=== PATIENT | female | born 1980 | race Caucasian/White ===

== ENCOUNTER 2017-12-29 12:09 | Outpatient (CLI) ==
[2016-07-06 17:23] VITALS: BMI 21.6
--- NOTE | 2017-12-29 13:43 | DI ---
EXAM: Three views of the right ankle. History: Right ankle trauma. Findings: No acute fracture or dislocation. Tiny plantar spur. Joint spaces are preserved. No abn ormal calcifications or radiopaque foreign bodies. Mild lateral soft tissue swelling. Impression: No acute osseous abnormality
== END 2017-12-29 12:10 | disposition home or self-care (01) ==
LOC: RAD 12:09
PROVIDERS: ATTEND Family Medicine
DX: S99.911A Unspecified injury of right ankle, initial encounter (principal)

== ENCOUNTER 2018-03-28 15:57 | Outpatient (CLI) ==
[2016-07-06 17:23] VITALS: BMI 21.6
== END 2018-03-28 15:58 | disposition home or self-care (01) ==
LOC: RHC-LAB 15:57
PROVIDERS: ATTEND Emergency Medicine
DX: L20.89 Other atopic dermatitis (principal)
CPT/HCPCS: 36415; 80053; 85025

== ENCOUNTER 2019-03-20 10:32 | Emergency (ER) | payer OTHER ==
[2019-03-20 10:39] VITALS: BP 131/86; TEMP 99.1; BMI 22.7
--- NOTE | 2019-03-20 12:05 | ED.PDOC ---
General ED Provider: Dr. CHARAN MILLER Chief Complaint: Hand Pain/Injury Stated Complaint: BLUNT FORCE TRAUMA DORSAL LEFT HAND AND WRIST Time Seen by Physician: 10:32 Mode of Arrival: Walk-In Information Source: Patient Exam Limitations: No limitations Primary Care Provider: EUSEBIA CARDOZO Nursing and Triage Documentation Reviewed and Agree: Yes Does patient meet sepsis criteria?: No System Inflammatory Response Syndrome: Not Applicable Sepsis Protocol: For patient's 13 years and over: Temp is 96.8 and below OR 101 and greater Pulse >90 BPM Resp >20/minute Acutely Altered Mental Status Are patient's symptoms suggestive of a new infection, such as: -Pneumonia -Skin, Soft Tissue -Endocarditis -UTI -Bone, Joint Infection -Implantable Device -Acute Abdominal Infection -Wound Infection -Meningitis -Blood Stream Catheter Infection -Unknown Musculoskeletal Complaint Exam - Hand/Wrist Complaint/Exam Location of Pain: Reports: Left, Hand, Wrist Mechanism of Injury: Reports: Trauma Onset/Duration: TODAY Symptoms Are: Still present Onset of Pain: Reports: Immediate Initial Severity: Mild Current Severity: Mild Location: Reports: Discrete Character: Reports: Aching Alleviating: Reports: Rest Aggravating: Reports: Movement Associated Signs and Symptoms: Reports: Swelling. Denies: Redness, Bruising, Fever, Weakness, Numbness, Tingling Dominant Hand: Right Related Surgical History: Reports: None Hand/Wrist Findings: Present: Swelling. Absent: Ecchymosis, Abnormal contour, Rotation, Tinel's Sign, Nail avulsion, Subungal hematoma, Erythema, Warmth, Blisters Differential Diagnoses: Closed Fracture, Sprain, Strain Review of Systems - Review Of Systems Constitutional: Reports: No symptoms Eyes: Reports: No symptoms Ears, Nose, Mouth, Throat: Reports: No symptoms Respiratory: Reports: No symptoms Cardiac: Reports: No symptoms GI: Reports: No symptoms : Reports: No symptoms Musculoskeletal: Reports: Joint pain (HAND ) Skin: Reports: No symptoms Neurological: Reports: No symptoms Endocrine: Reports: No symptoms Hematologic/Lymphatic: Reports: No symptoms All Other Systems: Reviewed and Negative Past Medical History - Past Medical History Previously Healthy: Yes Endocrine: Reports: None Cardiovascular: Reports: None Respiratory: Reports: None, Asthma (old record) Hematological: Reports: None Gastrointestinal: Reports: GERD, Other (IBS) Genitourinary: Reports: None Neuro/Psych: Reports: Anxiety Musculoskeletal: Reports: Arthritis Cancer: Reports: None Last Menstrual Period: no Other Pertinent Past Medical History: X2 LAPROSCOPIC X6 FOR FEMALE ISSUES"7 cycts removed" - Surgical History General Surgical History: Reports: Hysterectomy ( Hysterectomy, , 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), Tonsillectomy, Unknown - Family History Family History: Reports: Unknown - Social History Smoking Status: Current every day smoker, Light tobacco smoker Hx Substance Use: No Alcohol Screening: None - Immunizations Tetanus Shot up to Date: No Physical Exam - Physical Exam Appearance: Well-appearing, No pain distress, Well-nourished Eyes: LINDA, EOMI, Conjunctiva clear ENT: Ears normal, Nose normal, Oropharynx normal Respiratory: Airway patent, Breath sounds clear, Breath sounds equal, Respirations nonlabored Cardiovascular: RRR, Pulses normal, No rub, No murmur GI/: Soft, Nontender, No masses, Bowel sounds normal, No Organomegaly Musculoskeletal: Limited ROM (LEFT HAND ) Skin: Warm, Dry, Normal color Neurological: Sensation intact, Motor intact, Reflexes intact, Cranial nerves intact, Alert, Oriented Psychiatric: Affect appropriate, Mood appropriate Critical Care Note - Critical Care Note Total Time (mins): 0 Course - Course Orders, Labs, Meds: Orders Category Date Time Status HAND, LEFT 3 VIEWS Stat RADS 03/20/19 11:35 Taken WRIST, LEFT 3 VIEWS Stat RADS 03/20/19 11:35 Taken Vital Signs: Temp Pulse Resp BP Pulse Ox 03/20/19 10:32 99.1 F 92 H 16 131/86 97 Departure - Departure Time of Disposition: 12:04 Disposition: HOME SELF-CARE Discharge Problem: Hand pain Instructions: Hand Sprain (ED) Condition: Good Pt referred to PMD for follow-up: Yes IPMP verified?: No Additional Instructions: Please call your Family Physician as soon as possible to schedule a follow-up appointment. Allergies/Adverse Reactions: Allergies codeine Adverse Reaction (Mild, Verified 03/20/19 10:46) Nausea red (food color) Adverse Reaction (Mild, Verified 03/20/19 10:46) Hives clarithromycin [From Biaxin] Adverse Reaction (Verified 03/20/19 10:46) Diarrhea Home Medications: Ambulatory Orders 1 [No Reported Medications] 03/20/19
--- NOTE | 2019-03-20 12:08 | DI ---
EXAM: LEFT WRIST THREE VIEWS HISTORY: Wrist pain after injury FINDINGS: Bone and joint structures appear normal. No joint dislocation, displaced fracture or tootie ne density abnormality. Soft tissues are within normal limits. No arthritic change. IMPRESSION: Unremarkable study.
--- NOTE | 2019-03-20 12:09 | DI ---
EXAM: LEFT HAND THREE VIEWS HISTORY: Wrist pain after injury FINDINGS: Bone and joint structures appear normal. There is no fracture, joint dislocation, bone density abnormality or soft tissue finding. IMPRESSION: Within normal limits.
== END 2019-03-20 12:19 | disposition home or self-care (01) ==
LOC: ED 10:32
DX: S69.92XA Unspecified injury of left wrist, hand and finger(s), initial encounter (principal); W22.8XXA Striking against or struck by other objects, initial encounter; F17.210 Nicotine dependence, cigarettes, uncomplicated
CPT/HCPCS: 99282

== ENCOUNTER 2019-03-23 14:46 | Outpatient (CLI) ==
--- NOTE | 2019-03-23 15:42 | DI ---
EXAM: Left hand three-view HISTORY: Injury to left hand COMPARISON: 03/20/2019 FINDINGS: The bones are normal. The joints are normal. No focal soft tissue abnormality. IMPERSSION: Normal examination.
== END 2019-03-23 14:47 | disposition home or self-care (01) ==
LOC: RAD 14:46
PROVIDERS: ATTEND Nurse Practitioner Family
DX: S69.92XA Unspecified injury of left wrist, hand and finger(s), initial encounter (principal)